=== PATIENT | male | born 1960 | race Caucasian/White ===

== ENCOUNTER 2017-03-30 22:29 | Emergency (ER) | payer BC ==
[2017-03-30] MEDS ORDERED: IBUPROFEN 400 MG TABLET PO ONE (22:53)
[2017-03-30] MEDS ORDERED: ACETAMINOPHEN 500 MG TABLET PO ONE (22:53)
[2017-03-30] MEDS: 0.9 % SODIUM CHLORIDE 1000ML 500 ML IV SCH (22:56)
[2017-03-30 22:57] LABS: BASO % 0.3 % (0-6); EOS % 2.3 % (0-6); GRAN % 77.3 % (47-80); HEMATOCRIT 44.1 % (42.0-52.0); HEMOGLOBIN 15.3 gm/dl (14.0-18.0); LYMPH % 15.9 % (16-45); MEAN CELL VOLUME 89.1 fl (81-97); MEAN CORPUSCULAR HEMOGLOBIN 30.9 pg (27-33); MEAN CORPUSCULAR HGB CONC 34.7 g/dl (32-36); MONO % 4.2 % (0-9); PLATELET COUNT 183 K/uL (130-400); RED BLOOD COUNT 4.95 M/uL (4.40-5.70); WHITE BLOOD COUNT W/O DIFF 6.2 K/uL (4.2-12.2)
--- NOTE | 2017-03-30 22:57 | Emergency Department Record ---
History of Present Illness - General Chief complaint: Flu Like Symptoms Stated complaint: FLU LIKE SYMPTOMS Time Seen by Provider: 03/30/17 22:29 Source: Patient Mode of Arrival: Ambulatory Limitations: No limitations - History of Present Illness Initial comments: 57 yo male presents to ED for evaluation of cough, fever, chills, and nausea that began about 3 hours ago. Patient denies abdominal pain, loose stools, rashes, or urinary symptoms. Patient reports a history of AICD placement previously. MD Complaint: Generalized weakness Onset/Timin -: Hour(s) Location: Generalized Severity: Moderate Quality: Aching Consistency: Constant Improves with: None Worsens with: None Associated Symptoms: Denies other symptoms - [place] Coma Scale Eye Response: (4) Open spontaneously Motor Response: (6) Obeys commands Verbal Response: (5) Oriented [place] Total: 15 - Related Data Previous Rx's Medication Instructions Recorded Azithromycin [Zithromax] 250 mg PO DAILY #4 tab 03/31/17 Allergies Allergy/AdvReac Type Severity Reaction Status Date / Time No Known Allergies Allergy Unverified 09/04/16 09:06 Travel Screening - Travel/Exposure Within Last 30 Days Have you traveled within the last 30 days?: No - Travel/Exposure Within Last Year Have you traveled outside the [place] in the last year?: No - Additonal Travel Details Have you been exposed to anyone with a communicable illness?: No - Travel Symptoms Symptom Screening: None Review of Systems Constitutional: Reports: Chills, Fever, Malaise, Weakness. Denies: Night sweats Eyes: Denies: Eye discharge, Eye pain ENT: Denies: Ear pain, Epistaxis Respiratory: Reports: Cough, Dyspnea Cardiovascular: Reports: Dyspnea on exertion. Denies: Chest pain, Edema Endocrine: Reports: Fatigue. Denies: Heat or cold intolerance Gastrointestinal: Reports: Nausea. Denies: Constipation, Vomiting Genitourinary: Denies: Incontinence, Retention Musculoskeletal: Denies: Arthralgia, Back pain, Gout, Joint swelling Skin: Denies: Bruising, Change in color Neurological: Denies: Abnormal gait, Confusion, Headache, Seizure Psychiatric: Denies: Anxiety Hematological/Lymphatic: Denies: Anemia, Blood Clots Past Medical History - SOCIAL HISTORY Smoking Status: Former smoker Alcohol Use: None Drug Use: None - RESPIRATORY Hx Respiratory Disorders: No - CARDIOVASCULAR Hx Cardio Disorders: Yes Hx Pacemaker/Defib: Yes Comment:: sudden cardiac arrest - NEURO Hx Neuro Disorders: No - GI Hx GI Disorders: No - Hx Genitourinary Disorders: No - ENDOCRINE Hx Endocrine Disorders: No - MUSCULOSKELETAL Hx Musculoskeletal Disorders: No - PSYCH Hx Psych Problems: No - HEMATOLOGY/ONCOLOGY Hx Hematology/Oncology Disorders: No Family Medical History Any Significant Family History?: No Physical Exam - General General Appearance: Alert, Oriented x3, Cooperative, Moderate distress Limitations: No limitations - Head Head exam: Atraumatic, Normocephalic, Normal inspection Head exam detail: negative: Abrasion, Contusion, Lam's sign, General tenderness, Hematoma, Laceration - Eye Eye exam: Normal appearance. negative: Conjunctival injection, Periorbital swelling, Periorbital tenderness, Scleral icterus - ENT Ear exam: negative: Auricular hematoma, Auricular trauma Nasal Exam: negative: Active bleeding, Discharge, Dried blood, Foreign body Mouth exam: negative: Drooling, Laceration, Muffled voice, Tongue elevation - Neck Neck exam: Normal inspection. negative: Meningismus, Tenderness - Respiratory Respiratory exam: Normal lung sounds bilaterally. negative: Rales, Respiratory distress, Rhonchi, Stridor - Cardiovascular Cardiovascular Exam: Regular rate, Normal rhythm, Normal heart sounds - GI/Abdominal GI/Abdominal exam: Soft. negative: Rebound, Rigid, Tenderness - Rectal Rectal exam: Deferred - exam: Deferred - Extremities Extremities exam: Normal inspection. negative: Calf tenderness, Pedal edema, Tenderness - Back Back exam: Denies: CVA tenderness (R), CVA tenderness (L) - Neurological Neurological exam: Alert, Normal gait, Oriented X3 - Psychiatric Psychiatric exam: Normal affect, Normal mood - Skin Skin exam: Normal color. negative: Abrasion Type of lesion: negative: abrasion Course Vital Signs 03/30/17 03/30/17 22:43 22:48 Temperature 102.1 F H Pulse Rate [ 108 H Pulse Ox Probe] Respiratory 20 Rate Blood Pressure 130/86 [Left Arm] Pulse Ox 92 L - Reevaluation(s) Reevaluation #1: 03/30/17 22:56 EKG: NSR 103 IVCD, indeterminate axis Nonspecific ST-T wave changes Reevaluation #2: 03/30/17 23:28 Labs reviewed and are grossly unremarkable for an acute process. CXR: ? Patchy infiltrate left Patient was updated on all results thus far, will reassess in 15-20 minutes to determine disposition. Reevaluation #3: 03/31/17 00:21 Patient reassessed, temperature initally improved to 101.6 but has begun to increase again despite Tylenol and Motrin. Patient does not want to be admitted at this point, will administer IVFs for another 2 hours and reassess. Rocephin has compelted infusion, oral Zithromax ordered. Reevaluation #4: 03/31/17 02:12 Patient reassessed, reports that he is feeling much better and is asking to go home at this time. Patient appears stable for discharge at this time. Medical Decision Making - Lab Data Result diagrams: 03/30/17 22:50 03/30/17 22:50 Disposition Disposition: Discharge Clinical Impression: Myalgia CAP (community acquired pneumonia) Qualifiers: Laterality: left Lung location: unspecified part of lung Qualified Code(s): J18.9 - Pneumonia, unspecified organism Fever Qualifiers: Fever type: unspecified Qualified Code(s): R50.9 - Fever, unspecified Disposition: Still a Patient at [facility] Condition: (2) Stable Instructions: Community Acquired Pneumonia (ED) Additional Instructions: Return to ED if your symptoms worsen or if you have any concerns. Zithromax as directed. Follow-up with your family doctor in 1-3 days as directed. Prescriptions: Azithromycin [Zithromax] 250 mg PO DAILY #4 tab Forms: Patient Portal Access Time of Disposition: 02:11 Quality - Quality Measures Quality Measures: N/A - Blood Pressure Screening Does Patient Have Any of the Following: No Blood Pressure Classification: Normal BP Reading Systolic Measurement: 91 Diastolic Measurement: 63 Screening for High Blood Pressure: < Normal BP, F/U Not Required > [[id number]]
[2017-03-30 23:10] LABS: BLOOD UREA NITROGEN 15 mg/dL (6-20); CREATININE 1.2 mg/dL (0.7-1.2); EST GLOMERULAR FILTRATION RATE > 60 mL/min
[2017-03-30 23:12] LABS: GLUCOSE,RANDOM 128 mg/dL (74-109); INFLUENZA A NEGATIVE (NEGATIVE); INFLUENZA B NEGATIVE (NEGATIVE)
[2017-03-30 23:15] LABS: ALB/GLOB RATIO 1.6 (1.1-1.8); ALBUMIN 4.3 g/dL (4.0-5.0); ALKALINE PHOSPHATASE 49 U/L (40-129); ALT/SGPT 25 U/L (<41); AST/SGOT 17 U/L (10.0-50.0)
[2017-03-30] MEDS ORDERED: CEFTRIAXONE SODIUM 1 GM in 0.9 % SODIUM CHLORIDE 100ML 100 ML IVPB ONE (23:39)
[2017-03-31] MEDS ORDERED: AZITHROMYCIN 500 MG TABLET PO ONE (00:20)
[2017-03-31] MEDS: 0.9 % SODIUM CHLORIDE 1000ML 500 ML IV SCH (00:28)
[2017-03-31] MEDS ORDERED: 0.9 % SODIUM CHLORIDE 1000ML 1,000 ML IV SCH (00:30)
--- NOTE | 2017-03-31 09:21 | RADIOLOGY REPORT ---
EXAM: CHEST, TWO VIEWS HISTORY: NONPRODUCTIVE COUGH AND FEVER, FLU LIKE SYMPTOMS. TECHNIQUE: PA and lateral views of the chest were obtained. Comparison: None. FINDINGS: The heart size is normal. Postop sternotomy. There is a break in the lower sternotomy wire. Transvenous pacemaker in place with no pneumothorax evident. Multiple old right rib fractures. Artifact overlying the left lateral costophrenic angle. No pleural effusion or pneumothorax evident. There is slight increased density in the lung base posteriorly on the lateral view probably representing a small amount of infiltrate in the right lower lobe. Follow-up films suggested to demonstrate clearing. IMPRESSION: 1. POSTOP STERNOTOMY WITH A BREAK IN THE LOWER STERNOTOMY WIRE. 2. PACEMAKER WITH NO PNEUMOTHORAX EVIDENT. 3. MULTIPLE OLD RIGHT RIB FRACTURES. 4. SOME INFILTRATE IN THE RIGHT LOWER LOBE POSTEROINFERIORLY. FOLLOW-UP FILMS SUGGESTED TO DEMONSTRATE CLEARING. JOB NUMBER: [id number] MTDD
== END 2017-03-31 02:34 | disposition still patient (30) ==
LOC: ER 22:29
DX: J18.9 Pneumonia, unspecified organism (principal); M79.1 Myalgia; R53.1 Weakness; R50.81 Fever presenting with conditions classified elsewhere; Z86.74 Personal history of sudden cardiac arrest; Z87.891 Personal history of nicotine dependence
CPT/HCPCS: 71020; 80053; 83605; 85025; 87400; 93005; 93010; 99284; J7030